=== PATIENT | female | born 1995 | race African-American/Black ===

== ENCOUNTER 2021-01-28 09:17 | Emergency (ER) | payer SELFPAY ==
[2021-01-28 09:58] VITALS: BP 144/84; PULSE 57; RESP 18; TEMP 36.2; O2SAT 100
--- NOTE | 2021-01-28 10:31 | PC.NURSE ---
Patient putting fingers in their mouth to make themselves vomit.
[2021-01-28 10:41] LABS: Basophils Percent Auto 0.3 % (0.2-1.2); Eosinophils Absolute Auto 0.1 K/mm3 (0-0.3); Eosinophils Percent Auto 0.7 % (0-4.4); Hematocrit 36.3 % (37.0-47.0); Hemoglobin 11.8 g/dL (12.0-15.0); Immature Granulocyte Absolute 0.03 K/mm3 (0.00-0.031); Immature Granulocyte Percent A 0.3 % (0-0.5); Lymphocytes Absolute Auto 1.83 K/mm3 (0.9-3.2); Lymphocytes Percent Auto 18.9 % (18.3-44.2); Mean Corpuscular HGB Conc 32.5 g/dl (32-36); Mean Platelet Volume 10.6 fl (7.4-10.4); Monocytes Absolute Auto 0.3 K/mm3 (0.1-0.6); Monocytes Percent Auto 3.5 % (2.6-8.5); Neutrophils Absolute Auto 7.4 K/mm3 (1.3-6.7); Neutrophils Percent Auto 76.3 % (45.5-73.1); Platelet Count Result 312 k/mm3 (150-375); Red Blood Count 4.22 M/mm3 (4.2-5.4); Red Cell Distribution Width 14.6 % (11.5-14.5); White Blood Count 9.7 K/mm3 (4.5-10.0)
--- NOTE | 2021-01-28 10:47 | PC.NURSE ---
Pt. ambulated to bathroom without assistance.
[2021-01-28 10:52] LABS: Add Urine Microscopic? YES; Amorphous Sediment Urine Moderate; Appearance Urine Cloudy (Clear); Bacteria Urine Trace /hpf; Bilirubin Urine Negative (Negative); Blood Urine Negative (Negative); Color Urine Yellow (Yellow); Glucose Urine UA Negative (Negative); Ketones Urine Trace mg/dL (Negative); Leukocyte Esterase Ur Trace LEU/UL (Negative); Mucus Urine Few /lpf; Nitrate Urine Negative (Negative); Protein Urine 2+ mg/dL (Negative); RBC Urine 0-2 /hpf (0-2); Squamous Epithelial Cell Urine Many /hpf (Few); Urobilinogen Urine Negative mg/dL (<2.0)
[2021-01-28 10:54] LABS: Alanine Aminotransferase 18 U/L (4-35); Albumin Level 4.6 g/dL (3.5-5.1); Alkaline Phosphatase 73 U/L (38-126); Anion Gap 12 mmol/L (8-16); Aspartate Amino Transferase 36 U/L (14-36); Bilirubin,Total 0.2 mg/dL (0.2-1.3); Blood Urea Nitrogen 5 mg/dL (7-17); Calcium 10.2 mg/dL (8.4-10.2); Carbon Dioxide 20 mmol/L (22-30); Chloride 109 mmol/L (98-107); Estimated CRCL calculation 124 ml/min; Estimated Glomerular Filt Rate > 60; Glucose 134 mg/dL (65-105); Lipase 21 U/L (23-300); Potassium 3.4 mmol/L (3.4-5.0); Sodium 141 mmol/L (137-145)
[2021-01-28] MEDS: SODIUM CHLORIDE 0.9% IV 1,000 ML 999 ML IV CONT (10:57)
[2021-01-28] MEDS: ONDANSETRON INJ 4 MG/2 ML VIAL IV PUSH (10:57)
[2021-01-28 10:59] LABS: Pregnancy On Board Control Positive; Urine Pregnancy Test Negative
[2021-01-28 11:00] VITALS: BP 152/70; PULSE 58; RESP 16; TEMP 36.8; O2SAT 100
--- NOTE | 2021-01-28 12:57 | PC.NURSE ---
Pt reports nausea has improved. Pt given water for PO challenge.
--- NOTE | 2021-01-28 13:51 | PC.NURSE ---
Pt tolerated liquids well. Pt asking for meal. Meal provided. Will discharge home.
--- NOTE | 2021-01-28 13:59 | ED.ABDPAIN ---
HPI - Abdominal Pain General Chief Complaint: Abdominal Pain Stated Complaint: abd pain, N/V Time Seen by Provider: 01/28/21 10:33 History of Present Illness HPI narrative: Patient is a 25-year-old female who presents ER with abdominal pain with nausea and vomiting. Acute onset this morning. Diffuse abdominal cramping. Innumerable episodes of vomiting as well as frequent diarrhea. Patient has been incontinent of stool as well. No fevers or chills or sweats. No known sick contacts. Denies any alleviating factors. Has not had similar symptoms previously. Related Data Allergies Allergy/AdvReac Type Severity Reaction Status Date / Time No Known Allergies Allergy Verified 01/28/21 10:57 Review of Systems Review of Systems: All systems reviewed & are unremarkable except as noted in HPI and below Constitutional: Constitutional: Denies chills, Reports fatigue, Denies fever(s) and Denies weakness ENT: Denies nasal congestion and Denies sore throat Cardiovascular: Cardiovascular: Denies chest pain, Denies rapid heart rate and Denies radiating jaw, neck or arm pain Respiratory: Respiratory: Denies cough and Denies dyspnea Gastrointestinal: Gastrointestinal: Reports abdominal pain, Reports diarrhea, Reports nausea and Reports vomiting Genitourinary: Genitourinary: Denies nocturia and Denies dysuria PMF Past Medical History Medical History (Updated 01/28/21 @ 14:05 by Ron Delong MD) Healthy female adult Surgical History Surgical History (Updated 01/28/21 @ 14:01 by Ron Delong MD) No history of previous surgery Social History Social History (Updated 01/28/21 @ 14:01 by Ron Delong MD) Smoking status: Never smoker Exam Narrative: Exam Narrative: GENERAL: Well-appearing, well-nourished, and in no acute distress. HEAD: Normocephalic, atraumatic. ENT: Mucous membranes moist. CHEST: Clear to auscultation. No respiratory distress. HEART: Regular rate and rhythm. Normal peripheral pulses. ABDOMEN: Soft, nontender, nondistended. EXTREMITIES: Normal range of motion. No edema. SKIN: Warm, dry, no rash. NEURO: Alert and oriented x3. PSYCH: Normal mood and affect. Course Course Emergency Course: Patient has been p.o. challenged. She will be discharged home. Vital Signs Vital signs: Vital Signs Temperature 97.1 F L 01/28/21 09:58 Pulse Rate 57 L 01/28/21 09:58 Respiratory Rate 18 01/28/21 09:58 Blood Pressure 144/84 H 01/28/21 09:58 Pulse Oximetry 100 01/28/21 09:58 Temperature 98.2 F 01/28/21 11:00 Pulse Rate 58 L 01/28/21 11:00 Respiratory Rate 16 01/28/21 11:00 Blood Pressure 152/70 H 01/28/21 11:00 Pulse Oximetry 100 01/28/21 11:00 MDM - Abdominal Pain Lab Data Result diagrams: 01/28/21 10:15 01/28/21 10:15 Labs: Lab Results 01/28/21 01/28/21 01/28/21 Range/Units 10:15 10:15 10:38 WBC 9.7 (4.5-10.0) K/mm3 RBC 4.22 (4.2-5.4) M/mm3 Hgb 11.8 L (12.0-15.0) g/dL Hct 36.3 L (37.0-47.0) % MCV 86.0 (80-100) fl MCH 28.0 (26-34) pg MCHC 32.5 (32-36) g/dl RDW 14.6 H (11.5-14.5) % Plt Count 312 (150-375) k/mm3 MPV 10.6 H (7.4-10.4) fl Immature Gran % (Auto) 0.3 (0-0.5) % Neut % (Auto) 76.3 H (45.5-73.1) % Lymph % (Auto) 18.9 (18.3-44.2) % [place] % (Auto) 3.5 (2.6-8.5) % Eos % (Auto) 0.7 (0-4.4) % Baso % (Auto) 0.3 (0.2-1.2) % Lymph # (Auto) 1.83 (0.9-3.2) K/mm3 [place] # (Auto) 0.3 (0.1-0.6) K/mm3 Eos # (Auto) 0.1 (0-0.3) K/mm3 Baso # (Auto) 0.0 (0.0-0.1) K/mm3 Abs Immat Gran (auto) 0.03 (0.00-0.031) K/mm3 Absolute Neuts (auto) 7.4 H (1.3-6.7) K/mm3 Absolute Nucleated RBC 0.0 (0.0-0.012) K/mm3 Nucleated RBC % 0.0 (0.0-0.2) % Sodium 141 (137-145) mmol/L Potassium 3.4 (3.4-5.0) mmol/L Chloride 109 H (98-107) mmol/L Carbon Dioxide 20 L (22-30) mmol/L Anion Gap 12 (8-16) mmo
[2021-01-28 14:09] VITALS: BP 123/74; PULSE 60; RESP 16; TEMP 36.8; O2SAT 100
[2021-01-28 14:14] VITALS: BP 123/74; PULSE 73; RESP 16; O2SAT 99
--- NOTE | 2021-01-28 14:20 | PC.NURSE ---
Pt given paper scrubs as her clothes were dirty. Pt did not put on the scrubs and instead walked out in hospital gown.
== END 2021-01-28 14:21 | disposition home or self-care (01) ==
PROVIDERS: Emergency Provider Emergency Medicine
DX: K52.9 Noninfective gastroenteritis and colitis, unspecified (principal)
CPT/HCPCS: 36415; 51701; 80053; 81001; 81025; 83690; 85025; 96361; 96374; 99284; J2405; J7030

== ENCOUNTER 2022-03-16 14:56 | Emergency (ER) | payer MEDICAID, SELFPAY ==
[2022-03-16] VITALS (12 sets, daily range): BP systolic 110–126; BP diastolic 54–76; PULSE 77–91; RESP 16–24; TEMP 36.7; O2SAT 94–100
--- NOTE | 2022-03-16 14:58 | ECG_ITS ---
Measurements Intervals [place] Rate: 85 P: 28 MD: 135 QRS: 3 QRSD: 78 T: 10 QT: 364 QTc: 435 Interpretive Statements SINUS RHYTHM NONSPECIFIC T-WAVE ABNORMALITY. ABNORMAL ECG NO PREVIOUS ECG AVAILABLE FOR COMPARISON Electronically Signed On 03-16-2022 15:18:33 CDT by Elías Quintero M.D.
[2022-03-16 15:23] LABS: Basophils Percent Auto 0.3 % (0.2-1.2); Eosinophils Absolute Auto 0.2 K/mm3 (0-0.3); Eosinophils Percent Auto 1.8 % (0-4.4); Hematocrit 35.4 % (37.0-47.0); Hemoglobin 11.8 g/dL (12.0-15.0); Immature Granulocyte Absolute 0.08 K/mm3 (0.00-0.031); Immature Granulocyte Percent A 0.7 % (0-0.5); Lymphocytes Absolute Auto 2.23 K/mm3 (0.9-3.2); Lymphocytes Percent Auto 19.6 % (18.3-44.2); Mean Corpuscular HGB Conc 33.3 g/dl (32-36); Mean Corpuscular Hemoglobin 30.2 pg (26-34); Mean Corpuscular Volume 90.5 fl (80-100); Mean Platelet Volume 10.3 fl (7.4-10.4); Monocytes Absolute Auto 0.7 K/mm3 (0.1-0.6); Monocytes Percent Auto 6.3 % (2.6-8.5); Neutrophils Absolute Auto 8.1 K/mm3 (1.3-6.7); Neutrophils Percent Auto 71.3 % (45.5-73.1); Platelet Count Result 209 k/mm3 (150-375); Red Blood Count 3.91 M/mm3 (4.2-5.4); Red Cell Distribution Width 13.5 % (11.5-14.5); White Blood Count 11.4 K/mm3 (4.5-10.0)
[2022-03-16 15:37] LABS: Alanine Aminotransferase 21 U/L (6-35); Albumin Level 3.8 g/dL (3.5-5.1); Alkaline Phosphatase 64 U/L (38-126); Anion Gap 10 mmol/L (8-16); Aspartate Amino Transferase 22 U/L (14-36); Bilirubin,Total 0.2 mg/dL (0.2-1.3); Blood Urea Nitrogen 3 mg/dL (7-17); Calcium 8.7 mg/dL (8.4-10.2); Carbon Dioxide 19 mmol/L (22-30); Chloride 105 mmol/L (98-107); Estimated CRCL calculation 167 ml/min; Estimated Glomerular Filt Rate > 60; Glucose 101 mg/dL (65-110); Potassium 3.6 mmol/L (3.4-5.0); Sodium 134 mmol/L (137-145)
--- NOTE | 2022-03-16 16:00 | ED.DIZZY ---
HPI - Dizziness General Chief Complaint: Syncope Stated Complaint: syncope, 19 weeks Time Seen by Provider: 03/16/22 15:44 History of Present Illness HPI Narrative: 26-year-old female who is 20 weeks presents the emergency room for evaluation of syncopal episode that occurred yesterday. Patient states that she has been limiting her fluid intake for an unknown reason, felt dizzy and lightheaded yesterday and was up having a syncopal episode. Patient states that she struck the side of her head. Denies any loss of consciousness following the injury. Patient is complained of left-sided scalp pain. Denies any visual or hearing changes. States has been intermittently nauseous, but that it could be related to her . Denies any chest pain or shortness of breath. Denies any complications with the current . Denies any altered mental status. Related Data Home Medications Medication Instructions Recorded Confirmed aspirin 81 mg chewable tablet 81 mg PO DAILY 03/16/22 Allergies Allergy/AdvReac Type Severity Reaction Status Date / Time No Known Allergies Allergy Verified 03/16/22 15:25 Review of Systems Review of Systems: CONSTITUTIONAL: Denies fever, chills, or sweats. EYES: Denies visual changes, redness, or discharge. ENT: Denies rhinorrhea, congestion, sore throat, or otalgia. CARDIOVASCULAR: Denies chest pain, palpitations, or edema. RESPIRATORY: Denies cough or dyspnea. GASTROINTESTINAL: Denies abdominal pain, nausea, vomiting, or diarrhea. GENITOURINARY: Denies dysuria or hematuria. SKIN: Denies rash or itching. MUSCULOSKELETAL: Denies back pain, joint pain, or myalgia. NEUROLOGIC: Reports headache and dizziness PSYCHIATRIC: Denies anxiety or depression. PMFSH Past Medical History Medical History Healthy female adult Surgical History Surgical History No history of previous surgery Social History Social History Smoking status: Never smoker Exam Narrative: GENERAL: Well-appearing, well-nourished, no physical limitations, and in no acute distress. HEAD: Normocephalic, tenderness to left parietal scalp EYES: Conjunctivae normal, PERRLA and EOMI. ENT: External nose normal, Nares clear, no rhinorrhea or epistaxis. Mucous membranes moist. Oropharynx without tonsillar hypertrophy exudate or other lesions. External ears normal, bilateral TMs normal bilaterally CHEST: Clear to auscultation. No respiratory distress. No wheezes rales or rhonchi. No tenderness. HEART: Regular rate and rhythm. No murmur heard. Normal peripheral pulses. BACK: No cervical/thoracic/lumbar tenderness, step-offs, bony abnormality; FROM EXTREMITIES: Normal range of motion. No edema. No clubbing or cyanosis SKIN: Warm, dry, no rash. No noted wounds NEURO: No focal deficits. Alert and oriented x3. MAEW. CN's II-XI intact bilaterally, normal gait PSYCH: Cooperative. Normal mood and affect. Course Vital Signs Vital signs: Vital Signs Temperature 36.7 C 03/16/22 14:58 Pulse Rate 84 03/16/22 14:58 Respiratory Rate 16 03/16/22 14:58 Blood Pressure 126/54 L 03/16/22 14:58 Pulse Oximetry 100 03/16/22 14:58 Oxygen Delivery Room Air 03/16/22 14:58 Temperature 36.7 C 03/16/22 14:58 Pulse Rate 83 03/16/22 17:08 Respiratory Rate 22 H 03/16/22 16:31 Blood Pressure 118/67 03/16/22 16:30 Pulse Oximetry 94 03/16/22 17:08 Oxygen Delivery Room Air 03/16/22 14:58 MDM - Dizziness MDM Narrative Medical decision making narrative: 26-year-old female presented the emergency room following a syncopal episode. Given the history exam and work-up there is low suspicion for intracranial bleed, seizure or acute coronary syndrome. Vital signs of been stable. Patient does not have any chest pain or dyspnea. No rece
--- NOTE | 2022-03-16 16:12 | PC.NURSE ---
THis nurse tried for FHT with hand held doppler, unsuccessful. Provider at bedside at this time for FHT via US and doppler. Pt tolerting procedure well.
--- NOTE | 2022-03-16 16:23 | PC.NURSE ---
TIMI Monique visiualized FHT on US estimated to be at HR 153.
[2022-03-16] MEDS: ACETAMINOPHEN 500 MG TABLET 1000 MG PO (16:42)
[2022-03-16] MEDS: SODIUM CHLORIDE 0.9% IV 1,000 ML 999 ML IV CONT (16:46)
[2022-03-16 17:06] LABS: Appearance Urine Slightly Cloudy (Clear); Bilirubin Urine Negative (Negative); Blood Urine Negative (Negative); Color Urine Yellow (Yellow); Glucose Urine UA Negative (Negative); Ketones Urine Negative (Negative); Leukocyte Esterase Ur 1+ LEU/UL (Negative); Nitrate Urine Negative (Negative); Protein Urine Negative (Negative); Specific Grav Ur >= 1.030 (1.001-1.035); Urobilinogen Urine 0.2 mg/dL (<2.0)
[2022-03-16 17:09] LABS: Bacteria Urine Trace /hpf; Mucus Urine Moderate /lpf; Squamous Epithelial Cell Urine Many /hpf (Few)
[2022-03-16 17:11] LABS: Add Urine Microscopic? YES
== END 2022-03-16 18:00 | disposition home or self-care (01) ==
PROVIDERS: Emergency Medicine; Emergency Provider Nurse Practitioner Family
DX: O23.42 Unspecified infection of urinary tract in pregnancy, second trimester (principal); O99.891 Other specified diseases and conditions complicating pregnancy; R55 Syncope and collapse; Z79.82 Long term (current) use of aspirin; R94.31 Abnormal electrocardiogram [ECG] [EKG]; Z3A.20 20 weeks gestation of pregnancy
CPT/HCPCS: 36415; 80053; 81001; 81025; 85025; 93005; 96360; 99284; A9270; J7030

== ENCOUNTER 2022-03-18 08:00 | Emergency (ER) | payer MEDICAID, SELFPAY ==
--- NOTE | ~2022-03-18 | US_ITS ---
US OB limited 03/18/2022 10:14 Indication: 19 weeks . Bleeding. Procedure: High-resolution Limited obstetrical ultrasound using transabdominal technique Comparison: No prior studies for comparison. Findings: There is a single living intrauterine in vertex presentation. heart rate is 149 BPM. Placenta is posterior measuring 5.5 cm to the cervix. Amniotic fluid index is normal measur ing 12.7 cm. The placenta is grossly normal, without suggestion of placenta abruption. However, ultr asound is not diagnostic of abruption since acute hemorrhage can be isoechoic to be placenta. Recomm end clinical correlation. Cervical length is 5 cm. Impression: 1: Single living intrauterine in vertex presentation. 2: Normal JB measures 12.7 cm. Reviewed, dictated and finalized at location B. Impression: 1: Single living intrauterine in vertex presentation. 2: Normal JB measures 12.7 cm.
[2022-03-18 08:32] VITALS: BP 124/62; PULSE 69; RESP 18; TEMP 36.9; O2SAT 100
[2022-03-18 08:57] LABS: Basophils Percent Auto 0.2 % (0.2-1.2); Eosinophils Absolute Auto 0.2 K/mm3 (0-0.3); Eosinophils Percent Auto 1.8 % (0-4.4); Hematocrit 35.9 % (37.0-47.0); Immature Granulocyte Absolute 0.04 K/mm3 (0.00-0.031); Immature Granulocyte Percent A 0.4 % (0-0.5); Lymphocytes Absolute Auto 1.98 K/mm3 (0.9-3.2); Lymphocytes Percent Auto 19.1 % (18.3-44.2); Mean Corpuscular HGB Conc 33.4 g/dl (32-36); Mean Corpuscular Hemoglobin 30.1 pg (26-34); Mean Platelet Volume 10.2 fl (7.4-10.4); Monocytes Absolute Auto 0.5 K/mm3 (0.1-0.6); Monocytes Percent Auto 4.9 % (2.6-8.5); Neutrophils Absolute Auto 7.6 K/mm3 (1.3-6.7); Neutrophils Percent Auto 73.6 % (45.5-73.1); Platelet Count Result 209 k/mm3 (150-375); Red Blood Count 3.99 M/mm3 (4.2-5.4); Red Cell Distribution Width 13.5 % (11.5-14.5); White Blood Count 10.4 K/mm3 (4.5-10.0)
[2022-03-18 09:05] LABS: Appearance Urine Cloudy (Clear); Bilirubin Urine Negative (Negative); Blood Urine 3+ (Negative); Color Urine Yellow (Yellow); Glucose Urine UA Negative (Negative); Ketones Urine Negative (Negative); Leukocyte Esterase Ur 3+ LEU/UL (Negative); Nitrate Urine Negative (Negative); Protein Urine 1+ mg/dL (Negative); Urobilinogen Urine 0.2 mg/dL (<2.0); pH Urine 8.5 (5.0-9.0)
[2022-03-18 09:08] LABS: Partial Thromboplastin Time 29.2 SECONDS (22.3-36.8); Prothrombin Time 12.5 Seconds (11.1-14.7)
[2022-03-18 09:09] LABS: Bacteria Urine 1+ /hpf; Mucus Urine Rare /lpf; RBC Urine 21-50 /hpf (0-2); Squamous Epithelial Cell Urine Many /hpf (Few); Transitional Epi Cells Urine Rare /hpf (None Seen); WBC Clumps Urine Present /HPF; WBC Urine >75 /hpf
[2022-03-18 09:11] LABS: Add Urine Microscopic? YES; Alanine Aminotransferase 19 U/L (6-35); Albumin Level 3.8 g/dL (3.5-5.1); Alkaline Phosphatase 71 U/L (38-126); Anion Gap 10 mmol/L (8-16); Aspartate Amino Transferase 21 U/L (14-36); Bilirubin,Total 0.2 mg/dL (0.2-1.3); Blood Urea Nitrogen 3 mg/dL (7-17); Calcium 8.8 mg/dL (8.4-10.2); Carbon Dioxide 19 mmol/L (22-30); Chloride 105 mmol/L (98-107); Estimated CRCL calculation 164 ml/min; Estimated Glomerular Filt Rate > 60; Glucose 83 mg/dL (65-110); Potassium 3.6 mmol/L (3.4-5.0); Sodium 134 mmol/L (137-145)
--- NOTE | 2022-03-18 09:26 | ED.PREGNANCY ---
HPI - General Chief complaint: Vaginal Bleeding <TOÑA Moeller Last Filed: 03/18/22 12:19> Stated complaint: vaginal bleed <TOÑA Moeller Last Filed: 03/18/22 12:19> Time Seen by Provider: 03/18/22 09:10 <TOÑA Moeller Last Filed: 03/18/22 12:19> Source: patient <TOÑA Moeller Last Filed: 03/18/22 12:19> Mode of arrival: ambulatory <TOÑA Moeller Last Filed: 03/18/22 12:19> Limitations: no limitations <TOÑA Moeller Last Filed: 03/18/22 12:19> History of Present Illness HPI Narrative: This is a 26-year-old G1, P0, 19 weeks that presents to the emergency department for vaginal bleeding today. Reports when she woke up this morning she noted bright red blood when she wiped. This has continued since onset. She is feeling baby move. She is not having any pelvic cramping. She has had routine care. She is scheduled for her anatomy scan tomorrow. Reports she is currently taking Macrobid for a UTI. Denies fever or vomiting. <TOÑA Moeller Last Filed: 03/18/22 12:19> Related Data Home medications: Home Medications Medication Instructions Recorded Confirmed aspirin 81 mg chewable tablet 81 mg PO DAILY 03/16/22 03/18/22 <TOÑA Moeller Last Filed: 03/18/22 12:19> Allergies/Adverse reactions: Allergies Allergy/AdvReac Type Severity Reaction Status Date / Time No Known Allergies Allergy Verified 03/18/22 08:46 <TOÑA Moeller Last Filed: 03/18/22 12:19> Review of Systems Review of Systems: CONSTITUTIONAL: Denies fever GASTROINTESTINAL: Denies abdominal pain, nausea, vomiting GENITOURINARY: Denies dysuria <TOÑA Moeller Last Filed: 03/18/22 12:19> All systems reviewed & are unremarkable except as noted in HPI and below <Yarely Arias PA-C - Last Filed: 03/18/22 12:19> PMFSH Past Medical History Medical History: Medical History Healthy female adult <Yarely Arias PA-C - Last Filed: 03/18/22 12:19> Surgical History Surgical History: Surgical History No history of previous surgery <Yarely Arias PA-C - Last Filed: 03/18/22 12:19> Social History Social History: Social History Smoking status: Never smoker <Yarely Arias PA-C - Last Filed: 03/18/22 12:19> Exam Narrative: GENERAL: Well-appearing, well-nourished, and in no acute distress. HEAD: Normocephalic, atraumatic. EYES: EOMI. CHEST: Clear to auscultation. No respiratory distress. No wheezes rales or rhonchi HEART: Regular rate and rhythm. No murmur heard. Normal peripheral pulses. ABDOMEN: Gravid, nontender, normal active bowel sounds. EXTREMITIES: Normal range of motion. No edema. SKIN: Warm, dry, no rash. NEURO: No focal deficits. Alert and oriented x3. PSYCH: Normal mood and affect PELVIC: Small vulvar wart noted that is friable, likely source of bleeding. No bleeding noted on speculum exam. Cervix is mildly irritated with small amount of white/yellow discharge <Yarely Arias PA-C - Last Filed: 03/18/22 12:19> Course [employer]/PA Physician Supervision For this patient encounter, I reviewed the [employer]ER[employer] or PA documentation, treatment plan, and medical decision making; and I had [id number] time with this patient. <Anand Mcleod MD - Last Filed: 03/18/22 17:23> Vital Signs Vital signs: Vital Signs Temperature 98.4 F 03/18/22 08:32 Pulse Rate 69 03/18/22 08:32 Respiratory Rate 18 03/18/22 08:32 Blood Pressure 124/62 08/18/22 08:32 Pulse Oximetry 100 03/18/22 08:32 Oxygen Delivery Room Air 03/18/22 08:32 Temperature 98.4 F 03/18/22 08:32 Pulse Rate 67 03/18/22 12:45 Respiratory Rate 18 03/18/22 12:45 Blood Pressure 124/69
[2022-03-18 10:35] VITALS: BP 124/59; PULSE 64; RESP 18; O2SAT 100
[2022-03-18 12:45] VITALS: BP 124/69; PULSE 67; RESP 18; O2SAT 100
== END 2022-03-18 13:15 | disposition home or self-care (01) ==
PROVIDERS: Physician Assistant; Emergency Provider Emergency Medicine
DX: O98.312 Other infections with a predominantly sexual mode of transmission complicating pregnancy, second trimester (principal); A63.0 Anogenital (venereal) warts; A59.09 Other urogenital trichomoniasis; O23.42 Unspecified infection of urinary tract in pregnancy, second trimester; Z3A.19 19 weeks gestation of pregnancy
CPT/HCPCS: 36415; 76815; 80053; 81001; 81025; 85025; 85461; 85610; 85730; 87070; 87086; 87088; 87491; 87591; 87808; 99284